=== PATIENT | male | born 1975 | race Caucasian/White ===

== ENCOUNTER 2025-04-27 19:21 | Emergency (ER) | payer SELFPAY ==
[~2025-04-27] VITALS: Ht 165.1 cm; Wt 68.0 kg
[2025-04-27 20:12] VITALS: TEMP 98
[2025-04-27] MEDS ORDERED: KETOROLAC TROMETHAMINE INJ 30 MG/ML VIAL ONE (20:46)
[2025-04-27] MEDS ORDERED: ACETAMINOPHEN ES 500 MG TABLET ONE (20:46)
[2025-04-27] MEDS ORDERED: METHOCARBAMOL (500MG) 500 MG TABLET ONE (20:47)
[2025-04-27] MEDS ORDERED: ACET325C7 PO (20:51)
[2025-04-27] MEDS ORDERED: POLY17PO4 PO (20:51)
[2025-04-27] MEDS ORDERED: DOCU-141 PO (20:51)
[2025-04-27] MEDS ORDERED: IBUP-1490 PO (20:51)
[2025-04-27] MEDS ORDERED: LIDO30AD10 TP (20:51)
[2025-04-27] MEDS ORDERED: METH-649 PO (20:51)
[2025-04-27] MEDS: METHOCARBAMOL (750MG) 750 MG TABLET PO SCH (20:55)
[2025-04-27] MEDS: KETOROLAC TROMETHAMINE INJ 30 MG/ML VIAL IM ONE (20:55)
[2025-04-27] MEDS: ACETAMINOPHEN ES 500 MG TABLET PO ONE (20:55)
[2025-04-27 21:23] LABS: APPEARANCE,URINE CLEAR (CLEAR); BLOOD, URINE 1+ Ery/uL (NEGATIVE); LEUKOCYTE ESTERASE ,URINE NEGATIVE (NEGATIVE); NITRITE, URINE NEGATIVE (NEGATIVE); UGLUCOSE NEGATIVE (NEGATIVE)
[2025-04-27 21:33] VITALS: BP 124/80; O2SAT 98
[2025-04-27 21:36] LABS: ADD URINE CULTURE YES
== END 2025-04-27 21:37 | disposition home or self-care (01) ==
LOC: ER 19:27
DX: M54.50 Low back pain, unspecified (principal); K59.00 Constipation, unspecified
CPT/HCPCS: 99283; 96372; 81001; J1885; 87086-TC